=== PATIENT | male | born 1985 | race Caucasian/White ===

== ENCOUNTER 2023-01-10 12:40 | Outpatient (CLI) | payer OTHER ==
[~2023-01-10 12:40] MED LIST: Iopamidol 300 61% 100 ML VIAL FS ONE
== END 2023-01-10 12:41 | disposition home or self-care (01) ==
LOC: CSHCT 12:40
PROVIDERS: ATTEND Urology
DX: N50.89 Other specified disorders of the male genital organs (principal)
CPT/HCPCS: 71260; 74177; Q9967